=== PATIENT | male | born 1990 | race Caucasian/White ===

== ENCOUNTER 2016-12-01 14:30 | Emergency (ER) | payer OTHER ==
[2016-12-01 14:37] VITALS: BP 116/56
[2016-12-01] MEDS ORDERED: DOXYcycline CAP(*) 100 MG PO ONE (14:42)
--- NOTE | 2016-12-01 14:48 | UC ---
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 REMOVED BY PATIENT PRIOR TO ARRIVAL. EMBEDDED <48 HRS. NO FEVER. NO ABDOMINAL PAIN. - History of Current Complaint Chief Complaint: BRENNAkin Stated Complaint: TICK BITES Time Seen by Provider: 12/01/16 14:32 Hx Obtained From: Patient Onset/Duration: Sudden Onset, Lasting Hours, Resolved Onset Severity: Mild Current Severity: Mild Associated Signs & Symptoms: Negative: Cough, Fever, Headache, Syncope, SOB, Weakness - Allergy/Home Medications Allergies/Adverse Reactions: Allergies Allergy/AdvReac Type Severity Reaction Status Date / Time No Known Allergies Allergy Verified 03/19/16 11:38 Home Medications: Home Medications NK [No Home Medications Reported] 12/01/16 [History Confirmed 12/01/16] PMH/Surg Hx/FS Hx/Imm Hx Previously Healthy: Yes - Surgical History Surgical History: None - Family History Known Family History: Negative: Blood Disorder - Social History Occupation: Employed Full-time Lives: With Family Alcohol Use: None Substance Use Type: None Substance Use Comment - Amount & Last Used: unknown Smoking Status (MU): Heavy Every Day Tobacco Smoker Type: Cigarettes Amount Used/How Often: 10 cig a day Household Exposure Type: Cigarettes Cessation Counseling: Patient Advised to Stop Review of Systems Constitutional: Negative Skin: Rash Eyes: Negative ENT: Negative Respiratory: Negative Cardiovascular: Negative Gastrointestinal: Negative Genitourinary: Negative Motor: Negative Neurovascular: Negative Musculoskeletal: Negative Neurological: Negative Psychological: Negative Is Patient Immunocompromised?: No All Other Systems Reviewed And Are Negative: Yes Physical Exam Triage Information Reviewed: Yes Appearance: Well-Appearing, No Pain Distress, Well-Nourished Vital Signs: Initial Vital Signs Temp 97.7 F 12/01/16 14:32 Pulse 81 12/01/16 14:32 Resp 18 12/01/16 14:32 BP 116/56 12/01/16 14:32 Pulse Ox 99 12/01/16 14:32 Vital Signs Reviewed: Yes Eye Exam: Normal ENT Exam: Normal Dental Exam: Normal Neck exam: Normal Neck: Positive: Supple, Nontender Respiratory Exam: Normal Respiratory: Positive: Chest non-tender, Lungs clear, Normal breath sounds, No respiratory distress, No accessory muscle use Cardiovascular Exam: Normal Cardiovascular: Positive: RRR, No Murmur, Pulses Normal Abdominal Exam: Normal Musculoskeletal Exam: Normal Musculoskeletal: Positive: Strength Intact, ROM Intact Neurological Exam: Normal Psychological Exam: Normal Skin: Positive: rashes - RIGHT ANTERIOR SUPERIOR CHEST 0.3CM X 0.3 CM ERRETHEMATOUS CIRCULAR RASH WHERE TICK HAD BEEN EMBEDDED Course/Dx - Differential Dx - Multi-Symptom Differential Diagnoses: Metabolic Abnormality, Sepsis Provider Diagnoses: TICK BIRE PROPHYLAXIS Discharge - Discharge Plan Condition: Stable Disposition: HOME Patient Education Materials: Lyme Disease (ED), Tick Bite (ED) Referrals: Marcia Alfredo DO [Primary Care Provider] - Images Front/Back of Body, Lg (Cross): 1 - 0.3CM X 0.3 CM ERRETHEMATOUS CIRCULAR RASH WHERE TICK HAD BEEN EMBEDDED
== END 2016-12-01 14:50 | disposition home or self-care (01) ==
LOC: UCEAST 14:30
DX: S20.361A Insect bite (nonvenomous) of right front wall of thorax, initial encounter (principal); F17.210 Nicotine dependence, cigarettes, uncomplicated; W57.XXXA Bitten or stung by nonvenomous insect and other nonvenomous arthropods, initial encounter; Y92.9 Unspecified place or not applicable
CPT/HCPCS: 99212; A9270-GY; G0463

== ENCOUNTER → 2018-05-30 16:54 | Emergency (ER) | payer SELFPAY ==
[2018-05-30 17:01] VITALS: BP 157/100
--- NOTE | 2018-05-30 17:39 | ED ---
Complaint/Male - History of Current Complaint Chief Complaint: EDUrogenitalProblems Time Seen by Provider: 05/30/18 17:38 - Allergies/Home Medications Allergies/Adverse Reactions: Allergies Allergy/AdvReac Type Severity Reaction Status Date / Time No Known Allergies Allergy Verified 05/30/18 17:01 PMH/Surg Hx/FS Hx/Imm Hx Musculoskeletal History: Reports: Hx Back Problems - herniated discs Neurological History: Reports: Other Neuro Impairments/Disorders - PAIN CLINIC PT Infectious Disease History: No Infectious Disease History: Denies: Traveled Outside the [place] in Last 30 Days - Family History Known Family History: Negative: Blood Disorder - Social History Alcohol Use: None Substance Use Type: Reports: None Substance Use Comment - Amount & Last Used: unknown Smoking Status (MU): Heavy Every Day Tobacco Smoker Type: Cigarettes Amount Used/How Often: 10 cig a day Physical Exam Vital Signs On Initial Exam: Initial Vitals Temp Pulse Resp BP Pulse Ox 99.3 F 114 16 157/100 97 05/30/18 16:57 05/30/18 16:57 05/30/18 16:57 05/30/18 16:57 05/30/18 16:57 Diagnostics - Vital Signs Vital Signs Temp Pulse Resp BP Pulse Ox 05/30/18 16:57 99.3 F 114 16 157/100 97 - Laboratory Lab Statement: Any lab studies that have been ordered have been reviewed, and results considered in the medical decision making process.
--- NOTE | 2018-05-30 18:00 | ED ---
GI/ HPI - HPI Summary HPI Summary: 28 yo male presents to the ED with complaints of penile pain. He tells me that around noon today he got high with cocaine and decided to purchase a sex toy. He tells me that he purchased a plastic "butt" and, while erect, he went to inset his penis into the apparatus - his penis went sideways near the bottom of his shaft. He had some mild pain. His penis immediately went back to normal baseline without pain. He began to google "broken penis" and is concerned his penis may be "broken". Since that time he has urinated multiple times without difficulty. Denies testicular pain, penile discharge/bleeding, hematuria, or dysuria. He has been able to obtain an erection since this injury without difficulty. - History of Current Complaint Chief Complaint: EDUrogenitalProblems Time Seen by Provider: 05/30/18 17:38 Stated Complaint: GENITAL PROBLEM PER PT Hx Obtained From: Patient Onset/Duration: Started Hours Ago Severity: Moderate Current Severity: Mild Pain Intensity: 4 Additional Locations for Males: Penis - Allergy/Home Medications Allergies/Adverse Reactions: Allergies Allergy/AdvReac Type Severity Reaction Status Date / Time No Known Allergies Allergy Verified 05/30/18 17:01 PMH/Surg Hx/FS Hx/Imm Hx Musculoskeletal History: Reports: Hx Back Problems - herniated discs Neurological History: Reports: Other Neuro Impairments/Disorders - PAIN CLINIC PT - Immunization History Immunizations Up to Date: Yes Infectious Disease History: No Infectious Disease History: Denies: Traveled Outside the [place] in Last 30 Days - Family History Known Family History: Positive: None Negative: Blood Disorder - Social History Lives: With Family Alcohol Use: None Substance Use Type: Reports: None Substance Use Comment - Amount & Last Used: unknown Smoking Status (MU): Heavy Every Day Tobacco Smoker Type: Cigarettes Amount Used/How Often: 10 cig a day Review of Systems Constitutional: Negative Cardiovascular: Negative Respiratory: Negative Gastrointestinal: Negative Positive: other - Penile pain Musculoskeletal: Negative Skin: Negative Neurological: Negative Psychological: Normal All Other Systems Reviewed And Are Negative: Yes Physical Exam - Summary Physical Exam Summary: GENERAL: NAD. WDWN. SKIN: No rashes, sores, lesions, or open wounds. CHEST: CTAB. No r/r/w. No accessory muscle use. Breathing comfortably and in no distress. CV: RRR. Without m/r/g. Pulses intact. Cap refill <2seconds ABDOMEN: Soft. NTTP. No distention or guarding. No CVA tenderness. Bowel sounds present NEURO: Alert. PSYCH: Age appropriate behavior. Triage Information Reviewed: Yes Vital Signs On Initial Exam: Initial Vitals Temp Pulse Resp BP Pulse Ox 99.3 F 114 16 157/100 97 05/30/18 16:57 05/30/18 16:57 05/30/18 16:57 05/30/18 16:57 05/30/18 16:57 Vital Signs Reviewed: Yes Male Genital Exam: Positive: Normal Genitalia, Other - Mild penile tenderness as base of shaft. Negative: No Hernia, Bleeding, Epididymal Tenderness, Erythema, Hernia Mass, Inguinal Tenderness, Lesions, Scrotum Tenderness (R), Scrotum Tenderness (L), Testicular Tenderness (R), Testicular Tenderness (L), Urethral Discharge Diagnostics - Vital Signs Vital Signs Temp Pulse Resp BP Pulse Ox 05/30/18 16:57 99.3 F 114 16 157/100 97 - Laboratory Lab Statement: Any lab studies that have been ordered have been reviewed, and results considered in the medical decision making process. GIGU Course/Dx - Course Course Of Treatment: I discussed with the pt that his exam appears relatively normal, however would like to obtain an ultrasound today to evaluate for penile injury. Pt declined and said that he wants to go home. I discussed with the risks of of undiagnosed penile injury such as worsening pain/swelling, hematuria , inability to urinate or achieve an erection, and possible fertility issues later in the life. I discussed with him signing an AMA form as I strongly recommend an US today. He voiced understanding, but continued to verbalize that he wanted to leave - did say that he would return if he developed any symptoms. He eloped at 1800. - Diagnoses Provider Diagnoses: Penis injury Discharge - Sign-Out/Discharge Documenting (check all that apply): Patient Departure Patient Received Moderate/Deep Sedation with Procedure: No - Discharge Plan Condition: Stable Disposition: ELOPEMENT Referrals: Marcia Alfredo DO [Primary Care Provider] - - Billing Disposition and Condition Condition: STABLE Disposition: Elopement
== END | disposition home or self-care (01) ==
LOC: ED 16:54
DX: S39.94XA Unspecified injury of external genitals, initial encounter (principal); X58.XXXA Exposure to other specified factors, initial encounter; Y93.89 Activity, other specified; Y92.019 Unspecified place in single-family (private) house as the place of occurrence of the external cause; Y99.8 Other external cause status; F17.210 Nicotine dependence, cigarettes, uncomplicated
CPT/HCPCS: 99282